=== PATIENT | male | born 1995 | race Caucasian/White ===

== ENCOUNTER 2017-09-12 10:44 | Emergency (ER) | payer SELFPAY ==
[~2017-09-12] VITALS: Ht 182.9 cm; Wt 69.5 kg
[~2017-09-12 10:44] MED LIST: ZOFR4TAB3 SL
[2017-09-12 10:49] VITALS: BP 147/74; PULSE 80; RESP 16; TEMP 98.3; O2SAT 100
--- NOTE | 2017-09-12 10:59 | PD ---
HPI Chief Complaint: ENT Complaint Time Seen by Provider: 10:50 Travel History International Travel<30 days: No Contact w/Intl Traveler<30days: No Traveled to known affect area: No History of Present Illness HPI 22-year-old male here for evaluation of sore throat. Symptoms started 2 weeks ago. It hurts to swallow. He has been using Claritin and lozenges and occasional ibuprofen but sore throat persisted which prompted evaluation. Denies fevers, chills, cough, rash, abdominal pain, acid reflux. He has no other complaints. [facility] Past Medical History Diminished Hearing: No Immunizations Current: Yes Social History Alcohol Use: No Tobacco Use: No Substance Use: No Allergies-Medications (Allergen,Severity, Reaction): Coded Allergies: amoxicillin (Unverified Allergy, Severe, HIVES, 09/12/17) penicillin G (Unverified Allergy, Severe, Anaphylaxis, 09/12/17) cephalexin (Unverified Allergy, Intermediate, RASH, 09/12/17) Reported Meds & Prescriptions Reported Meds & Active Scripts Active No Active Prescriptions or Reported Medications Review of Systems Except as stated in HPI: all other systems reviewed are Neg Physical Exam Narrative GENERAL: Well-developed well-nourished male in no acute distress SKIN: Warm and dry. HEAD: Atraumatic. Normocephalic. EYES: Pupils equal and round. No scleral icterus. No injection or drainage. ENT: No nasal bleeding or discharge. Mucous membranes pink and moist. There is no oral pharyngeal erythema or exudate. Uvula midline with no mass effect. NECK: Trachea midline. No JVD. No lymphadenopathy CARDIOVASCULAR: Regular rate and rhythm. No murmur appreciated. RESPIRATORY: No accessory muscle use. Clear to auscultation. Breath sounds equal bilaterally. GASTROINTESTINAL: Abdomen soft, non-tender, nondistended. Hepatic and splenic margins not palpable. Data Data Last Documented VS Vital Signs Date Time Temp Pulse Resp B/P (MAP) Pulse Ox O2 Delivery O2 Flow Rate FiO2 09/12/17 10:49 98.3 80 16 147/74 (98) 100 Orders Orders Group A Rapid Strep Screen (09/12/17 10:57) Strep Culture (Group A) (09/12/17 11:00) Ed Discharge Order (09/12/17 11:28) MDM Medical Decision Making Medical Screen Exam Complete: Yes Emergency Medical Condition: Yes Medical Record Reviewed: Yes Differential Diagnosis Pharyngitis, tonsillitis, peritonsillar abscess, infectious mononucleosis, herpangina, epiglottitis, retropharyngeal abscess, dyspepsia Narrative Course 22-year-old male here with sore throat for 2 weeks with no other symptoms. Physical examination is unremarkable. Rapid strep screen was performed and was negative. Most likely this is a viral pharyngitis. The patient was counseled that if symptoms persist for more than a month he should follow up with his primary care physician, likely for ENT referral. He is stable for discharge. Diagnosis Primary Impression: Pharyngitis Qualified Codes: J02.9 - Acute pharyngitis, unspecified Additional Instructions: Stay well hydrated and well-nourished. Tylenol and Motrin for pain per dosing instructions on the bottle. [id number] lozenges. Avoid tobacco products. Follow-up with primary care physician as needed. Return for any emergent medical conditions. Med/Other Pt SpecificInfo: No Change to Meds Scripts No Active Prescriptions or Reported Meds Disposition: 01 DISCHARGE HOME Condition: Stable Santana Matos Sep 12, 2017 10:59
== END 2017-09-12 11:38 | disposition home or self-care (01) ==
LOC: PHEFT 10:44
DX: J02.9 Acute pharyngitis, unspecified (principal)
CPT/HCPCS: 87081; 87880; 99283

== ENCOUNTER 2017-11-12 13:36 | Emergency (ER) | payer SELFPAY ==
[~2017-11-12] VITALS: Ht 182.9 cm; Wt 65.0 kg
[2017-11-12 13:52] VITALS: BP 139/64; PULSE 117; RESP 16; TEMP 99.8; O2SAT 98
--- NOTE | 2017-11-12 15:45 | PD ---
HPI Chief Complaint: Cold / Flu Symptoms Time Seen by Provider: 15:11 Travel History International Travel<30 days: No Contact w/Intl Traveler<30days: No Traveled to known affect area: No History of Present Illness HPI 22-year-old male presents to the ED for evaluation less than 24 hour history of body aches, fevers, chills, nausea, vomiting, sinus congestion, rhinorrhea, headaches, nonproductive cough. Symptoms onset gradually. Denies history of seasonal allergies, did not receive this years flu shot. Denies sick contacts. Treated at home with Tylenol.. PFSH Past Medical History Diminished Hearing: No Immunizations Current: Yes Social History Alcohol Use: No Tobacco Use: No Substance Use: No Allergies-Medications (Allergen,Severity, Reaction): Coded Allergies: amoxicillin (Unverified Allergy, Severe, HIVES, 11/12/17) penicillin G (Unverified Allergy, Severe, Anaphylaxis, 11/12/17) cephalexin (Unverified Allergy, Intermediate, RASH, 11/12/17) Reported Meds & Prescriptions Reported Meds & Active Scripts Active Zofran Odt (Ondansetron Odt) 4 Mg Tab 4 Mg SL Q8HR PRN Tamiflu (Oseltamivir Phosphate) 75 Mg Cap 75 Mg PO BID 5 Days Review of Systems Except as stated in HPI: all other systems reviewed are Neg Physical Exam Narrative GENERAL: Well-nourished, well-developed ill-appearing white male in no acute distress. SKIN: Focused skin assessment warm/dry. HEAD: Normocephalic. EYES: No scleral icterus. No injection or drainage. ENT: Pear[place] callaway tympanic membranes bilaterally. Oropharynx without erythema, edema, exudates. NECK: Supple, trachea midline. No JVD or lymphadenopathy. CARDIOVASCULAR: Regular rate and rhythm without murmurs, gallops, or rubs. RESPIRATORY: Breath sounds clear and equal bilaterally. No accessory muscle use. GASTROINTESTINAL: Abdomen soft, non-tender, nondistended. MUSCULOSKELETAL: No cyanosis, or edema. BACK: Nontender without obvious deformity. No CVA tenderness. Data Data Last Documented VS Vital Signs Date Time Temp Pulse Resp B/P (MAP) Pulse Ox O2 Delivery O2 Flow Rate FiO2 11/12/17 13:52 99.8 117 16 139/64 (89) 98 Orders Orders Influenzae A/B Antigen (11/12/17 14:32) Ondansetron Odt (Zofran Odt) (11/12/17 16:00) Ibuprofen (Motrin) (11/12/17 16:00) Ed Discharge Order (11/12/17 15:46) [facility] Medical Decision Making Medical Screen Exam Complete: Yes Emergency Medical Condition: Yes Differential Diagnosis Influenza versus allergic rhinitis versus viral syndrome versus other Narrative Course 22-year-old male presents to the ED for evaluation less than 24-hour history of flu symptoms. Patient's ill-appearing, afebrile on presentation. Flu swab positive. Patient was administered dose of Zofran and ibuprofen in the emergency room. Prescribed Tamiflu 75 mg twice a day 5 days. He is instructed to continue to treat symptomatically. He is provided a note for work. He is stable and discharged home. Diagnosis Primary Impression: Influenza Referrals: Primary Care Physician Patient Instructions: General Instructions, Influenza (ED) Additional Instructions: Rest, hydrate. Push fluids such as sports drinks, Pedialyte, popsicles, clear broth. Offer favorite foods to encourage eating. Take Tamiflu as prescribed. Takes Zofran as prescribed as needed for continued nausea and vomiting. Continue with symptomatic treatment. Alternating Motrin and Tylenol every 4-6 hours as needed for continued fever. Increase handwashing frequently to avoid the spread of the virus to other family members and the community. Disinfect commonly touched surfaces such as light switches, microwaves, remote controls. Replace toothbrush at the end of this illness. Follow-up with the primary care provider this week. Return to the ED for any urgent or emergent medical condition. Med/Other Pt SpecificInfo: Prescription(s) given Scripts Ondansetron Odt (Zofran Odt) 4 Mg Tab 4 MG SL Q8HR Y for Nausea/Vomiting, #6 TAB 0 Refills Prov: Reno Mendez MD 11/12/17 Oseltamivir (Tamiflu) 75 Mg Cap 75 MG PO BID for Mgmt Viral Infection for 5 Days, #10 CAP 0 Refills Prov: Reno Mendez MD 11/12/17 Disposition: 01 DISCHARGE HOME Condition: Stable iMranda Apple Nov 12, 2017 15:45
[2017-11-12] MEDS ORDERED: ZOFR4TAB3 SL (15:46)
[2017-11-12] MEDS ORDERED: OSEL75 PO (15:46)
[2017-11-12] MEDS ORDERED: IBUPROFEN 800 MG TAB PO ONE (16:00)
[2017-11-12] MEDS ORDERED: ONDANSETRON ODT 4 MG TAB PO ONE (16:00)
== END 2017-11-12 16:11 | disposition home or self-care (01) ==
LOC: PHED 13:36 → PHEFT 16:11
DX: J10.89 Influenza due to other identified influenza virus with other manifestations (principal); Z88.0 Allergy status to penicillin
CPT/HCPCS: 87804; 99284

== ENCOUNTER 2018-02-12 08:06 | Emergency (ER) | payer SELFPAY ==
[~2018-02-12] VITALS: Ht 182.9 cm; Wt 69.3 kg
[~2018-02-12 08:06] MED LIST changes: +OSEL75 PO
[2018-02-12 08:09] VITALS: BP 142/68; PULSE 74; RESP 16; TEMP 98.1; O2SAT 98
--- NOTE | 2018-02-12 08:32 | PD ---
HPI Chief Complaint: Cold / Flu Symptoms Time Seen by Provider: 08:24 Travel History International Travel<30 days: No Contact w/Intl Traveler<30days: No Traveled to known affect area: No History of Present Illness HPI This 23-year-old male says he been sick for 3-4 days. He has had a bad cough and has been quite congested. He does not smoke. He thinks he might of had asthma when he was younger. He is not aware of any fever. He is not on any medication [facility] Past Medical History Medical History: Denies Significant Hx Diminished Hearing: No Immunizations Current: Yes Past Surgical History Surgical History: No Previous Surgery Social History Alcohol Use: No Tobacco Use: No Substance Use: No Allergies-Medications (Allergen,Severity, Reaction): Coded Allergies: amoxicillin (Unverified Allergy, Severe, HIVES, 02/12/18) penicillin G (Unverified Allergy, Severe, Anaphylaxis, 02/12/18) cephalexin (Unverified Allergy, Intermediate, RASH, 02/12/18) Reported Meds & Prescriptions Reported Meds & Active Scripts Active No Active Prescriptions or Reported Medications Review of Systems Except as stated in HPI: all other systems reviewed are Neg General / Constitutional: No: Fever, Chills Eyes: No: Diploplia, Blurred Vision HENT: No: Headaches Cardiovascular: Positive: Chest Pain or Discomfort, No: Palpitations Respiratory: Positive: Cough Gastrointestinal: No: Vomiting, Diarrhea Genitourinary: No: Urgency, Frequency Musculoskeletal: No: Myalgias Skin: No Rash Neurologic: No: Weakness Hematologic/Lymphatic: No: Easy Bruising Physical Exam Narrative GENERAL: Well-developed male SKIN: Focused skin assessment warm/dry. HEAD: Atraumatic. Normocephalic. EYES: Pupils equal and round. No scleral icterus. No injection or drainage. ENT: No nasal bleeding or discharge. Mucous membranes pink and moist. NECK: Trachea midline. No JVD. CARDIOVASCULAR: Regular rate and rhythm. No murmur appreciated. RESPIRATORY: No accessory muscle use. Clear to auscultation. Breath sounds equal bilaterally. There are occasional rhonchi GASTROINTESTINAL: Abdomen soft, non-tender, nondistended. Hepatic and splenic margins not palpable. MUSCULOSKELETAL: No obvious deformities. No clubbing. No cyanosis. No edema. NEUROLOGICAL: Awake and alert. No obvious cranial nerve deficits. Motor grossly within normal limits. Normal speech. PSYCHIATRIC: Appropriate mood and affect; insight and judgment normal. Data Data Last Documented VS Vital Signs Date Time Temp Pulse Resp B/P (MAP) Pulse Ox O2 Delivery O2 Flow Rate FiO2 02/12/18 08:16 18 99 Room Air 02/12/18 08:09 98.1 74 142/68 (92) Orders Orders Chest, Pa & Lat (02/12/18 08:28) MDM Medical Decision Making Medical Screen Exam Complete: Yes Emergency Medical Condition: Yes Medical Record Reviewed: Yes Differential Diagnosis Differential includes pneumonia, bronchitis Narrative Course X-ray is negative. Diagnosis is bronchitis most likely viral Tessalon Perles will be prescribed Diagnosis Primary Impression: Acute bronchitis Departure Forms: Tests/Procedures, Work Release Enter return to work date: Feb 13, 2018 Scripts Benzonatate (Tessalon Perles) 100 Mg Cap 200 MG PO TID Y for COUGH, #15 CAP 0 Refills Prov: Dashawn Butler MD 02/12/18 Disposition: 01 DISCHARGE HOME Condition: Stable Dashawn Butler MD Feb 12, 2018 08:32
--- NOTE | 2018-02-12 09:33 | RADRPT ---
EXAM DATE/TIME: 02/12/2018 09:00 [place] COMPARISON: No previous studies available for comparison. INDICATIONS : Pt states he has had a cough for 4-5 days. Pain after coughing in his upper chest. Pt is non-smoker. MEDICAL HISTORY : None. SURGICAL HISTORY : None. ENCOUNTER: Initial ACUITY: 4 - 6 days PAIN SCORE: 3/10 LOCATION: Bilateral chest FINDINGS: PA and lateral views of the chest demonstrate the lungs to be symmetrically aerated without evidence of mass, infiltrate or effusion. The cardiomediastinal contours are unremarkable. Osseous structure s are intact. CONCLUSION: No acute disease. Steven Felton MD on February 12, 2018 at 9:31 Board Certified Radiologist. This report was verified electronically.
[2018-02-12] MEDS ORDERED: BENZ100 PO (09:41)
== END 2018-02-12 09:55 | disposition home or self-care (01) ==
LOC: PHED 08:06
DX: J20.9 Acute bronchitis, unspecified (principal)
CPT/HCPCS: 71046; 99283